=== PATIENT | female | born 1980 | race Two or more races ===

== ENCOUNTER 2018-05-30 19:27 | Emergency (ER) | payer MEDICAID ==
[~2018-05-30] VITALS: Ht 162.6 cm; Wt 99.8 kg
--- NOTE | 2018-05-30 20:00 | NUR ---
PT A/OX4, RESPONSIVE TO VERBAL AND TACTILE STIMULI. PT C/O ABD PAIN W/ N/V X 7 DAYS. PT STATES SHE WAS SEEN BY HER PCP ON MONDAY (05/28) AND WAS TOLD SHE HAD INCREASED LIPASE LEVEL. ABD NON-DISTENDED IN APPEARANCE, ABD SOUNDS ACTIVE, AND SOFT ON PALPATION. PT DENIES C/P, SOB, N/V/D, DIZZINESS, HEADACHE.
[2018-05-30] MEDS ORDERED: ONDANSETRON 4 MG/2 ML VIAL IV ONE ×2 (20:15→22:15)
[2018-05-30] MEDS ORDERED: IV NORMAL SALINE 50 ML BAG IV ONE (20:15)
[2018-05-30] MEDS ORDERED: MORPHINE SULFATE 4 MG/1 ML DISP.SYRIN IV ONE (20:15)
[2018-05-30 20:20] LABS: *BILIRUBIN,URIN NEGATIVE (NEGATIVE); *BLOOD, URINE NEGATIVE (NEGATIVE); *COLOR,URINE YELLOW (YELLOW); *KETONES,URINE NEGATIVE (NEGATIVE); *PROTEIN,URINE NEGATIVE (NEGATIVE); *UROBILINOGEN,URINE 0.2 E.U./dl (NORMAL); LEUKOCYTE ESTERASE ,URINE NEGATIVE (NEGATIVE); NITRITE, URINE NEGATIVE (NEGATIVE); UGLUCOSE NEGATIVE (NEGATIVE)
[2018-05-30 20:22] LABS: BASOPHILS % (AUTO) 0.3 % (0.0-2.0); EOSINOPHILS # (AUTO) 0.2 K/uL (0.0-0.7); EOSINOPHILS % (AUTO) 2.1 % (0.0-7.0); HEMOGLOBIN 13.3 g/dL (10.9-14.3); LYMPHOCYTES # (AUTO) 2.7 K/uL (20.0-40.0); LYMPHOCYTES % (AUTO) 30.2 % (20.5-51.5); MEAN CORPUSCULAR HEMOGLOBIN 29.7 uug (24.7-32.8); MEAN CORPUSCULAR HGB CONC 34 g/dL (32.3-35.6); MEAN CORPUSCULAR VOLUME 87.2 fL (75.5-95.3); MONOCYTES # (AUTO) 0.4 K/uL (2.0-10.0); MONOCYTES % (AUTO) 4.9 % (0.0-11.0); NEUTROPHILS # (AUTO) 5.6 K/uL (1.8-8.9); NEUTROPHILS % (AUTO) 62.5 % (38.5-71.5); PLATELET COUNT (AUTO) 402 K/uL (179-408); RED BLOOD CELL COUNT(AUTO) 4.47 MIL/uL (3.63-4.92)
[2018-05-30 20:28] LABS: CREATININE 0.7 mg/dL (0.6-1.3)
[2018-05-30 20:32] LABS: *CLARITY,URINE HAZY (CLEAR)
[2018-05-30 20:33] LABS: RBC,URINE 0-3 /HPF (0-3)
[2018-05-30 20:34] LABS: BACTERIA,URINE FEW /HPF (NONE SEEN); BILIRUBIN,DIRECT 0.1 mg/dL (0.0-0.2); BILIRUBIN,TOTAL 0.4 mg/dL (0.2-1.0); MUCUS,URINE MODERATE /LPF (0-FEW); SQUAMOUS EPITHELIAL CELL,UR MODERATE /HPF (NONE SEEN); TOTAL PROTEIN, SERUM 7.9 g/dL (6.4-8.2); WBC,URINE 0-3 /HPF (0-3)
[2018-05-30] MEDS ORDERED: diphenhydrAMINE 25 MG/10 ML UDC ONE (21:12)
[2018-05-30] MEDS ORDERED: diphenhydrAMINE 50 MG/1 ML VIAL IV ONE (21:15)
--- NOTE | 2018-05-30 21:20 | NUR ---
PT TRANS TO RADIOLOGY FOR CT SCAN.
[2018-05-30] MEDS ORDERED: diphenhydrAMINE 50 MG CAPSULE PO ONE (21:30)
--- NOTE | 2018-05-30 21:40 | NUR ---
PT BACK IN UNIT FROM RADIOLOGY.
[2018-05-30] MEDS ORDERED: diphenhydrAMINE 25 MG/10 ML UDC PO ONE (22:00)
[2018-05-30] MEDS ORDERED: HYDROMORPHONE 1 MG/1 ML DISP.SYRIN IM ONE (22:15)
[2018-05-30] MEDS ORDERED: HYDROMORPHONE 1 MG/1 ML DISP.SYRIN ONE (22:36)
[2018-05-30] MEDS ORDERED: ONDANSETRON 4 MG/2 ML VIAL ONE (22:36)
--- NOTE | 2018-05-30 23:02 | NUR ---
22G LLE IV ACCESS ESTABLISHED, VERBAL ORDER RECEIVED AND CARRIED OUT.
--- NOTE | 2018-05-30 23:22 | NUR ---
PT VERBALIZES WISHES TO LEAVE AMA. ER MD SPOKE AT LENGTH TO PT RE POSSIBLE ADMISSION, BUT PT INSISTS SHE LEAVE AMA.
[2018-05-30 23:43] VITALS: BP 143/76
== END 2018-05-30 23:44 | disposition left against medical advice (07) ==
LOC: ER 19:27
DX: K85.90 Acute pancreatitis without necrosis or infection, unspecified (principal); Z88.8 Allergy status to other drugs, medicaments and biological substances; Z91.041 Radiographic dye allergy status
CPT/HCPCS: 36415; 74176; 80048; 80076; 81001; 83690; 85025; 96361; 96372; 96374; 96375; 96376; 99285; J1170; J2405; Q0163; A4663; J2270; J7030